=== PATIENT | male | born 1995 | race American Indian/Alaskan Native ===

== ENCOUNTER 2016-10-19 13:17 | Emergency (ER) | payer BC, OTHER ==
[2016-10-19 13:25] VITALS: BMI 27.2
[2016-10-19 13:28] VITALS: TEMP 98.6
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
--- NOTE | 2016-10-19 14:10 | CT ---
PROCEDURE: CT HEAD WITHOUT CONTRAST. HISTORY: head injury, pain COMPARISON: None available. TECHNIQUE: Axial computed tomography images were obtained through the head/brain without intravenous contrast. Radiation dose: Total exam DLP = 689 mGy-cm. This CT exam was performed using one or more of the following dose reduction techniques: Automated exposure control, adjustment of the mA and/or kV according to patient size, and/or use of iterative reconstruction technique. FINDINGS: HEMORRHAGE: No intracranial hemorrhage. BRAIN: No mass effect or edema. No suspicious cortical or medullary density is seen above or below the tentorium VENTRICLES: Unremarkable. No hydrocephalus. CALVARIUM: Unremarkable. No fracture identified including the skullbase. PARANASAL SINUSES: Multifocal bilateral ethmoid sinus disease is appreciated incidentally. MASTOID AIR CELLS: Unremarkable as visualized. No inflammatory changes. OTHER FINDINGS: None. IMPRESSION: Normal CT of the Head. Incidental bilateral ethmoid sinusitis.
--- NOTE | 2016-10-19 14:18 | CT ---
PROCEDURE: CT MAXILLOFACIAL BONES WITHOUT CONTRAST HISTORY: right facial pain s/p trauma COMPARISON: None TECHNIQUE: Contiguous axial CT images of the maxillofacial bones were obtained. Coronal and sagittal reformats were generated. Radiation dose: Total exam DLP = 738 mGy-cm. This CT exam was performed using one or more of the following dose reduction techniques: Automated exposure control, adjustment of the mA and/or kV according to patient size, and/or use of iterative reconstruction technique. FINDINGS: NASAL BONES: Unremarkable. ORBITS: Unremarkable. PARANASAL SINUSES/ MASTOIDS: Multifocal bilateral ethmoid sinusitis identified. . MAXILLA: Unremarkable. MANDIBLE/ TEMPOROMANDIBULAR JOINTS: There is an oblique fracture through the right horizontal mandibular ramus extending to include the angle posteriorly a proximal portion of the fracture includes the socket for the right impacted 3rd molar. Emphysematous changes are appreciated deep to the mucosa of the right cheek which may reflect mucosal laceration local to the fracture. Further clinical correlation is advised. The left mandible including the mental portion appears intact both temporomandibular joints appear unremarkable as imaged. SKULL BASE: Unremarkable. TEMPORAL BONES: Middle ears and mastoid grossly unremarkable. OTHER FINDINGS: None. IMPRESSION: An oblique, right-sided mandibular fractures appreciated. Potential related mucosal laceration at the medial right cheek soft tissues. No additional facial fracture identified. Multifocal ethmoid sinusitis incidentally noted.
[2016-10-19] MEDS ORDERED: Sodium Chloride 0.9% 1,000 ML IV STA (14:20)
[2016-10-19] MEDS ORDERED: Morphine 4 mg/ml ISec IVP STA (14:20)
[2016-10-19 14:29] LABS: BASO # 0.01 K/mm3 (0.0-2.0); BASO % 0.1 % (0.0-3.0); EOS # 0.2 (0.0-0.7); EOS % 1.3 % (1.5-5.0); GRAN # 10.52 (1.4-6.5); GRAN % 85.5 % (50.0-68.0); HEMOGLOBIN 14.2 gm/dL (14.0-18.0); LYMPH # 1.1 (1.2-3.4); LYMPH % 8.6 % (22.0-35.0); MEAN CELL VOLUME 91.7 fL (80.0-105.0); MEAN CORPUSCULAR HEMOGLOBIN 32.9 pg (25.0-35.0); MEAN CORPUSCULAR HGB CONC 35.9 g/dl (31.0-37.0); MEAN PLATELET VOLUME 9.9 fl (7.0-11.0); MONO # 0.6 (0.1-0.6); MONO % 4.5 % (1.0-6.0); PLATELET COUNT 182 10^3/uL (120.0-450.0); RBC 4.32 10^6/uL (3.5-6.1); RED CELL DISTRIBUTION WIDTH 13.1 % (11.5-14.5); WHITE BLOOD COUNT 12.3 10^3/ul (4.5-11.0)
[2016-10-19 14:39] LABS: ALB/GLOB RATIO 1.4 (1.1-1.8); ALBUMIN 4.4 g/dL (3.0-4.8); ALT/SGPT 39 U/L (7-56); AST/SGOT 39 U/L (15-59); BLOOD UREA NITROGEN 11 mg/dL (7-21); CALCIUM 9.1 mg/dL (8.4-10.5); GFR AFRICAN-AMERICAN > 60; GFR NON-AFRICAN AMERICAN > 60; INR 1.07 (0.93-1.08); PARTIAL THROMBOPLASTIN TIME 25.3 Seconds (23.7-30.8); PROTHROMBIN TIME 11.6 Seconds (9.9-11.8)
[2016-10-19 16:34] VITALS: BP 135/67; PULSE 80; RESP 16; O2SAT 100
== END 2016-10-19 16:34 | disposition designated cancer center or children's hospital (05) ==
LOC: ED 13:17
DX: S02.609A Fracture of mandible, unspecified, initial encounter for closed fracture (principal); Y04.0XXA Assault by unarmed brawl or fight, initial encounter
CPT/HCPCS: 70450; 70486; 80053; 85025; 85610; 85730; 86850; 86900; 96374; 96375; 99284; J2270; J2405; J7040

== ENCOUNTER 2016-10-27 13:30 | Emergency (ER) | payer BC ==
[2016-10-27 13:36] VITALS: BMI 28.7
[2016-10-27 13:41] VITALS: BP 120/70; PULSE 69; RESP 18; TEMP 97.5; O2SAT 97
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
== END 2016-10-27 14:55 | disposition home or self-care (01) ==
LOC: ED 13:30
DX: Z48.89 Encounter for other specified surgical aftercare (principal)

== ENCOUNTER 2017-03-14 10:43 | Emergency (ER) | payer BC ==
[2017-03-14 10:44] VITALS: BMI 28.7
[2017-03-14 11:01] VITALS: BP 144/89; PULSE 72; TEMP 99.2
[2017-03-14 11:05] VITALS: RESP 18; O2SAT 98
[2017-03-14] MEDS ORDERED: TDAP Vaccine 0.5 mL Syr IM ONE (11:16)
--- NOTE | 2017-03-14 11:20 | ED PDOC ---
Arrival/HPI - General Chief Complaint: Abnormal Skin Integrity Time Seen by Provider: 03/14/17 11:09 Historian: Patient - History of Present Illness Narrative History of Present Illness (Text): 03/14/17 11:14 A 21 year old male, with significant past medical history, presents to the emergency department complaining of laceration to left hand. Patient reports sustaining laceration from broomstick while at work. Patient denies any other complaints. Prefers glue rather than stitches. PMD: Dr. Sam Gardner Time/Duration: Prior to Arrival Past Medical History - Provider Review Nursing Documentation Reviewed: Yes - Infectious Disease Hx of Infectious Diseases: None - Tetanus Immunization Tetanus Immunization: Unknown - Past Medical History Past Medical History: No Previous - Cardiac Hx Cardiac Disorders: No - Pulmonary Hx Respiratory Disorders: Yes Hx Asthma: Yes - Neurological Hx Neurological Disorder: No - HEENT Hx HEENT Disorder: No - Renal Hx Renal Disorder: No - Endocrine/Metabolic Hx Endocrine Disorders: No - Hematological/Oncological Hx Blood Disorders: No - Integumentary Hx Dermatological Disorder: No - Musculoskeletal/Rheumatological Hx Musculoskeletal Disorders: No - Gastrointestinal Hx Gastrointestinal Disorders: No - Genitourinary/Gynecological Hx Genitourinary Disorders: No - Psychiatric Hx Psychophysiologic Disorder: No Hx Substance Use: Yes (weed) Other/Comment: mood swings - Past Surgical History Past Surgical History: No Previous - Surgical History Other/Comment: L thumb surgery, oral surgery - Anesthesia Hx Anesthesia: Yes Hx Anesthesia Reactions: No Hx Malignant Hyperthermia: No - Suicidal Assessment Feels Threatened In Home Enviroment: No Family/Social History - Physician Review Nursing Documentation Reviewed: Yes Family/Social History: No Known Family HX Smoking Status: Current Some Days Smoker Hx Alcohol Use: No Hx Substance Use: Yes (weed) Hx Substance Use Treatment: No Allergies/Home Meds Allergies/Adverse Reactions: Allergies shellfish derived Allergy (Verified 03/14/17 11:01) SWELLING Home Medications: Home Meds Medication Instructions Recorded Confirmed No Known Home Med 10/19/16 03/14/17 Review of Systems - Physician Review All systems were reviewed & negative as marked: Yes - Review of Systems Constitutional: absent: Other (no pain) Skin: Laceration (left hand) Physical Exam Vital Signs Reviewed: Yes Vital Signs Temp Pulse Resp BP Pulse Ox 03/14/17 11:04 99.2 F 72 18 144/89 98 12/13/17 10:56 99.2 F 72 16 144/89 99 Temperature: Afebrile Blood Pressure: Normal Respiratory Rate: Normal Appearance: Positive for: Well-Appearing Pain Distress: None Mental Status: Positive for: Alert and Oriented X 3 - Systems Exam Head: Present: Normocephalic Upper Extremity: Present: Other (laceration to left hand) Medical Decision Making ED Course and Treatment: 03/14/17 11:16 Impression: 21 year old male with left hand laceration. Plan: -- Boostrix Vaccine -- Reassess and disposition Progress Notes: - Medication Orders Current Medication Orders: Discontinued Medications Tetanus/Reduced Diphtheria/Acell Pertussis (Boostrix Vaccine Inj) 0.5 ml IM .ONCE ONE Stop: 03/14/17 11: Last Admin: 03/14/17 12:02 Dose: 0.5 ml Immunization Registry Document 03/14/17 12:02 HI (Rec: 03/14/17 12:03 CT [id number]) Immunization Registry Consent Date 03/14/17 - Scribe Statement The provider has reviewed the documentation as recorded by the Wolfe Gurmeet Mayorga Provider Scribe Attestation: All medical record entries made by the Scribe were at my direction and personally dictated by me. I have reviewed the chart and agree that the record accurately reflects my personal performance of the history, physical exam, medical decision making, and the department course for this patient. I have also personally directed, reviewed, and agree with the discharge instructions and disposition. Disposition/Present on Arrival - Present on Arrival Any Indicators Present on Arrival: No History of DVT/PE: No History of Uncontrolled Diabetes: No Urinary Catheter: No History of Decub. Ulcer: No History Surgical Site Infection Following: None - Disposition Have Diagnosis and Disposition been Completed?: Yes Diagnosis: Hand laceration Disposition: HOME/ ROUTINE Disposition Time: 11:00 Condition: STABLE Discharge Instructions (ExitCare): Laceration (ED), Skin Adhesive Care (ED) Additional Instructions: follow up with your doctor. return to emergency room with worsening symptoms or concerns. Referrals: [facility] [Outside] - Follow up with primary [facility] [Outside] - Follow up with primary Sam Gardner MD [Primary Care Provider] - Follow up with primary Magnus Marion DO [Staff Provider] - Follow up with primary Forms: [employer] (C[place]ican)
== END 2017-03-14 12:16 | disposition home or self-care (01) ==
LOC: ED 10:43
DX: S61.412A Laceration without foreign body of left hand, initial encounter (principal); W45.8XXA Other foreign body or object entering through skin, initial encounter; Y99.0 Civilian activity done for income or pay; Z23 Encounter for immunization

== ENCOUNTER 2017-04-20 09:50 | Emergency (ER) | payer BC, MEDICAID ==
[2017-04-20 10:10] VITALS: BMI 27.6
[2017-04-20 10:14] VITALS: TEMP 98.9
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
[2017-04-20 12:23] VITALS: BP 127/83; PULSE 66; RESP 16; O2SAT 99
== END 2017-04-20 12:22 | disposition home or self-care (01) ==
LOC: ED 09:50
DX: T85.618A Breakdown (mechanical) of other specified internal prosthetic devices, implants and grafts, initial encounter (principal)

== ENCOUNTER 2018-01-26 08:40 | Emergency (ER) | payer BC, MEDICAID ==
[2018-01-26 09:03] VITALS: TEMP 98.7; O2SAT 99; BMI 26.8
[2018-01-26] MEDS ORDERED: Naproxen 550 mg Tab PO STA (09:09)
--- NOTE | 2018-01-26 09:18 | ED PDOC ---
Arrival/HPI - General Chief Complaint: Upper Extremity Problem/Injury Time Seen by Provider: 01/26/18 09:06 Historian: Patient - History of Present Illness Narrative History of Present Illness (Text): 01/26/18 09:15 A 22 year old male, with no significant past medical history, presents to the emergency department complaining of left hand pain s/p injury. Patient reports he punched a glass with his left hand and began immediately experiencing pain. Patient states he realized he may have broken his 5th digit, as he is unable to move it. Patient denies any other complaints at this time. No PMD Past Medical History - Provider Review Nursing Documentation Reviewed: Yes - Infectious Disease Hx of Infectious Diseases: None - Tetanus Immunization Tetanus Immunization: Unknown - Past Medical History Past Medical History: No Previous - Cardiac Hx Cardiac Disorders: No - Pulmonary Hx Respiratory Disorders: Yes Hx Asthma: Yes - Neurological Hx Neurological Disorder: No - HEENT Hx HEENT Disorder: No - Renal Hx Renal Disorder: No - Endocrine/Metabolic Hx Endocrine Disorders: No - Hematological/Oncological Hx Blood Disorders: No - Integumentary Hx Dermatological Disorder: No - Musculoskeletal/Rheumatological Hx Musculoskeletal Disorders: No - Gastrointestinal Hx Gastrointestinal Disorders: No - Genitourinary/Gynecological Hx Genitourinary Disorders: No - Psychiatric Hx Psychophysiologic Disorder: No Hx Substance Use: Yes (weed) Other/Comment: mood swings - Past Surgical History Past Surgical History: No Previous - Surgical History Other/Comment: L thumb surgery, oral surgery - Anesthesia Hx Anesthesia: Yes Hx Anesthesia Reactions: No Hx Malignant Hyperthermia: No - Suicidal Assessment Feels Threatened In Home Enviroment: No Family/Social History - Physician Review Nursing Documentation Reviewed: Yes Family/Social History: No Known Family HX Smoking Status: Current Some Days Smoker Hx Alcohol Use: No Hx Substance Use: Yes (weed) Hx Substance Use Treatment: No Allergies/Home Meds Allergies/Adverse Reactions: Allergies shellfish derived Allergy (Verified 03/14/17 11:01) SWELLING Review of Systems - Review of Systems Musculoskeletal: Other (left hand pain, specifically 5th digit (pinky)). absent: Joint Swelling Physical Exam Vital Signs Reviewed: Yes Vital Signs Temp Pulse Resp BP Pulse Ox 01/26/18 09:02 98.7 F 64 18 135/91 H 99 Temperature: Afebrile Blood Pressure: Normal Pulse: Regular Respiratory Rate: Normal Appearance: Positive for: Well-Appearing, Non-Toxic, Comfortable Pain Distress: None Mental Status: Positive for: Alert and Oriented X 3 - Systems Exam Upper Extremity: Present: Tenderness (left hand) Neurological: Present: GCS=15, CN II-XII Intact, Speech Normal Skin: Present: Warm, Dry, Normal Color. No: Rashes Psychiatric: Present: Alert, Oriented x 3, Normal Insight, Normal Concentration Medical Decision Making ED Course and Treatment: 01/26/18 09:16 Impression: 22 year old male with left hand pain s/p injury. Physical exam shows left hand tenderness. Plan: -- Left Hand X-Ray -- Naproxen -- Reassess and disposition Progress Notes: 01/26/2018 10:21 Left Hand X-Ray IMPRESSION: Acute impacted nondisplaced fracture in the neck of the 5th metacarpl with mild dorsal angulation and overlying soft tissue swelling. Dictator: Heidi Bustamante MD 01/26/18 15:[address] wiley richard. advise outpt fu. - RAD Interpretation Radiology Orders: 01/26/18 09:09 HAND LEFT 3 VIEWS ROUTINE [RAD] Stat - Medication Orders Current Medication Orders: Discontinued Medications Naproxen (Anaprox Ds) 550 mg PO STAT STA Stop: 01/26/18 09:10 - Scribe Statement The provider has reviewed the documentation as recorded by the Geovanna Mayorga Provider Scribe Attestation: All medical record entries made by the Scribe were at my direction and personally dictated by me. I have reviewed the chart and agree that the record accurately reflects my personal performance of the history, physical exam, medical decision making, and the department course for this patient. I have also personally directed, reviewed, and agree with the discharge instructions and disposition. Disposition/Present on Arrival - Present on Arrival Any Indicators Present on Arrival: No History of DVT/PE: No History of Uncontrolled Diabetes: No Urinary Catheter: No History of Decub. Ulcer: No History Surgical Site Infection Following: None - Disposition Have Diagnosis and Disposition been Completed?: Yes Diagnosis: Metacarpal bone fracture Disposition: HOME/ ROUTINE Disposition Time: 11:00 Condition: STABLE Discharge Instructions (ExitCare): Hand Fracture (DC) Additional Instructions: follow up with ortho. return to er with worsening symptoms or concerns. Prescriptions: RX: Naproxen 500 mg PO BID PRN #14 tablet PRN Reason: Pain, Mild (1-3) RX: traMADol [Ultram] 50 mg PO TID PRN #10 tab PRN Reason: Pain, Severe (8-10) Referrals: Magnus Marion DO [Staff Provider] - Follow up with primary Forms: [employer] (Slovak)
--- NOTE | 2018-01-26 10:25 | RAD ---
PROCEDURE: Left Hand Radiographs. HISTORY: Trauma COMPARISON: None. FINDINGS: BONES: There is an acute impacted nondisplaced fracture in the neck of the 5th metacarpal with mild dorsal angulation. JOINTS: Normal. SOFT TISSUES: There is soft tissue swelling overlying the 5th metacarpal. OTHER FINDINGS: None. IMPRESSION: Acute impacted nondisplaced fracture in the neck of the 5th metacarpal with mild dorsal angulation and overlying soft tissue swelling.
--- NOTE | 2018-01-26 11:23 | RAD ---
PROCEDURE: Left Hand Radiographs. HISTORY: post reduction COMPARISON: None. FINDINGS: BONES: Cast obscures fine bony details. There is no acute displaced fracture or bone destruction. Bone alignment is normal. JOINTS: Normal. No osteoarthritic changes. SOFT TISSUES: Normal. OTHER FINDINGS: None. IMPRESSION: Status post close reduction, no acute fracture or dislocation. Near normal bone alignment.
[2018-01-26 11:30] VITALS: BP 130/87; PULSE 66; RESP 17
--- NOTE | 2018-01-26 21:43 | CON ---
DATE OF CONSULTATION: 01/26/2018 The patient suffered an injury to his left thumb and hand and injured it by fracturing the 5th metacarpal distal end of the neck and the proximal phalanx of the 5th digit, nonarticular. Both fractures did show good position, good rotation, and mild swelling. The deformity is not going to be life-altering, so we put him in an ulnar gutter cast with some fine manipulation to keep it in good position and to have acceptable results. I told him that he should cancel his surgery to have to have pins in and glass cuts and there is a chance of infection and still he would have a mild deformity. 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 So, we put him in an ulnar gutter splint, well padded and pankaj taping of the 4th and the 5th digit in the dorsiflexion of the wrist and flexion of the MCP joint and the PIP joint mild. We will see him in the office in 10 days. Post-reduction x-ray was done to make sure I did not make it worse and be able to go home. Told to elevate it, do not get it wet, and to come back in 10 days or reach to the office for reevaluation. Magnus Marion DO
== END 2018-01-26 11:30 | disposition home or self-care (01) ==
LOC: ED 08:40
DX: S62.367A Nondisplaced fracture of neck of fifth metacarpal bone, left hand, initial encounter for closed fracture (principal); W22.8XXA Striking against or struck by other objects, initial encounter; Y92.9 Unspecified place or not applicable

== ENCOUNTER 2018-02-23 22:38 | Emergency (ER) | payer BC ==
[2018-02-23 22:44] VITALS: BMI 31.5
[2018-02-23 23:37] LABS: BASO # 0.01 K/mm3 (0.0-2.0); BASO % 0.1 % (0.0-3.0); EOS # 0.1 (0.0-0.7); EOS % 1.7 % (1.5-5.0); GRAN # 4.95 (1.4-6.5); GRAN % 65.8 % (50.0-68.0); HEMOGLOBIN 14.2 g/dL (14.0-18.0); MEAN CELL VOLUME 93.2 fl (80.0-105.0); MEAN CORPUSCULAR HEMOGLOBIN 32.3 pg (25.0-35.0); MEAN CORPUSCULAR HGB CONC 34.6 g/dl (31.0-37.0); MEAN PLATELET VOLUME 10.6 fl (7.0-11.0); MONO # 0.5 (0.1-0.6); MONO % 6.4 % (1.0-6.0); RBC 4.4 10^6/uL (3.5-6.1); WHITE BLOOD COUNT 7.5 10^3/uL (4.5-11.0)
[2018-02-23 23:52] LABS: ALB/GLOB RATIO 1.3 (1.1-1.8); ALBUMIN 4.4 g/dL (3.0-4.8); ALT/SGPT 43 U/L (7-56); AST/SGOT 40 U/L (17-59); BLOOD UREA NITROGEN 10 mg/dL (7-21); CALCIUM 9.1 mg/dL (8.4-10.5); GFR NON-AFRICAN AMERICAN > 60
[2018-02-23 23:53] LABS: ACETAMINOPHEN < 10.0 ug/ml (10.0-20.0); SALICYLATE < 1 mg/dL (2.0-20.0)
--- NOTE | 2018-02-24 00:02 | ED PDOC ---
Arrival/HPI - General Chief Complaint: Psychiatric Evaluation Time Seen by Provider: 02/23/18 22:40 Historian: Patient - History of Present Illness Narrative History of Present Illness (Text): 02/23/18 22:45 Ap Walter is a 22 year old male who presents to the Emergency department brought in by EMS after he got in to a verbal argument with his parents this evening. Patient denies any psychiatric history, states he only has a medical history of asthma. Patient denies taking any medications regularly, suicidal ideation, homicidal ideation, or any other somatic complaints. Symptom Onset: Gradual Symptom Course: Unchanged Activities at Onset: Light Context: Home Past Medical History - Provider Review Nursing Documentation Reviewed: Yes - Infectious Disease Hx of Infectious Diseases: None - Tetanus Immunization Tetanus Immunization: Unknown - Past Medical History Past Medical History: No Previous - Cardiac Hx Cardiac Disorders: No - Pulmonary Hx Respiratory Disorders: Yes Hx Asthma: Yes - Neurological Hx Neurological Disorder: No - HEENT Hx HEENT Disorder: No - Renal Hx Renal Disorder: No - Endocrine/Metabolic Hx Endocrine Disorders: No - Hematological/Oncological Hx Blood Disorders: No - Integumentary Hx Dermatological Disorder: No - Musculoskeletal/Rheumatological Hx Musculoskeletal Disorders: No - Gastrointestinal Hx Gastrointestinal Disorders: No - Genitourinary/Gynecological Hx Genitourinary Disorders: No - Psychiatric Hx Psychophysiologic Disorder: No Hx Substance Use: Yes (weed) Other/Comment: mood swings - Past Surgical History Past Surgical History: No Previous - Surgical History Other/Comment: L thumb surgery, oral surgery - Anesthesia Hx Anesthesia: Yes Hx Anesthesia Reactions: No Hx Malignant Hyperthermia: No - Suicidal Assessment Feels Threatened In Home Enviroment: No Family/Social History - Physician Review Nursing Documentation Reviewed: Yes Family/Social History: Unknown Family HX Smoking Status: Current Some Days Smoker Hx Alcohol Use: No Hx Substance Use: Yes (weed) Hx Substance Use Treatment: No Allergies/Home Meds Allergies/Adverse Reactions: Allergies shellfish derived Allergy (Verified 02/23/18 22:44) SWELLING Home Medications: Home Meds Medication Instructions Recorded Confirmed RX: No Known Home Med 02/23/18 02/23/18 Review of Systems - Physician Review All systems were reviewed & negative as marked: Yes - Review of Systems Constitutional: Normal. absent: Fevers Eyes: Normal ENT: Normal Respiratory: Normal. absent: SOB, Cough Cardiovascular: Normal. absent: Chest Pain Gastrointestinal: Normal. absent: Abdominal Pain, Diarrhea, Nausea, Vomiting Genitourinary Male: Normal. absent: Dysuria, Frequency, Hematuria, Urinary Output Changes Musculoskeletal: Normal. absent: Back Pain, Neck Pain Skin: Normal. absent: Rash Neurological: Normal. absent: Headache, Dizziness Endocrine: Normal Hemo/Lymphatic: Normal Psychiatric: Normal Physical Exam Vital Signs Reviewed: Yes Temperature: Afebrile Blood Pressure: Normal Pulse: Regular Respiratory Rate: Normal Appearance: Positive for: Well-Appearing, Non-Toxic, Comfortable Pain Distress: None Mental Status: Positive for: Alert and Oriented X 3 - Systems Exam Head: Present: Atraumatic, Normocephalic Pupils: Present: PERRL Extroacular Muscles: Present: EOMI Conjunctiva: Present: Normal Mouth: Present: Moist Mucous Membranes Neck: Present: Normal Range of Motion Respiratory/Chest: Present: Clear to Auscultation, Good Air Exchange. No: Respiratory Distress, Accessory Muscle Use Cardiovascular: Present: Regular Rate and Rhythm, Normal S1, S2. No: Murmurs Abdomen: No: Tenderness, Distention, Peritoneal Signs Back: Present: Normal Inspection Upper Extremity: Present: Normal Inspection. No: Cyanosis, Edema Lower Extremity: Present: Normal Inspection. No: Edema Neurological: Present: GCS=15, CN II-XII Intact, Speech Normal Skin: Present: Warm, Dry, Normal Color. No: Rashes Psychiatric: Present: Alert, Oriented x 3, Normal Insight, Normal Concentration Medical Decision Making ED Course and Treatment: 02/23/18 22:45 Impression: 22 year old male brought in by EMS for psychiatric evaluation. Plan: -- EKG -- Chest X-ray -- Labs, alcohol level -- Urinalysis, urine drug screen -- Reassess and disposition Prior Visits: Notes and results from previous visits were reviewed. Progress Notes: Reviewed EKG, sinus bradycardia at [address]-segment elevations or depressions, no T-wave inversions, normal intervals. 02/24/18 00:35 Chest X-ray reviewed, shows no acute processes. 02/24/18 01:29 Pt medically cleared for PES evaluation. 02/24/18 05:35 Patient cleared by psychiatry for discharge. Patient to follow up with [facility]. - Lab Interpretations Lab Results: 02/23/18 23:23 02/23/18 23:23 Lab Results 02/23/18 23:23: Alcohol, Quantitative < 10 02/23/18 23:23: Salicylates < 1 L, Acetaminophen < 10.0 L 02/23/18 23:23: Sodium 140, Potassium 4.3, Chloride 108 H, Carbon Dioxide 24, Anion Gap 12, BUN 10, Creatinine 0.7 L, Est GFR ( Amer) > 60, Est GFR (Non-Af Amer) > 60, Random Glucose 99, Calcium 9.1, Total Bilirubin 0.3, AST 40, ALT 43, Alkaline Phosphatase 76, Total Protein 7.8, Albumin 4.4, Globulin 3.3, Albumin/Globulin Ratio 1.3 02/23/18 23:23: WBC 7.5, RBC 4.40, Hgb 14.2, Hct 41.0 L, MCV 93.2, MCH 32.3, MCHC 34.6, RDW 13.0, Plt Count 193, MPV 10.6, Gran % 65.8, Lymph % (Auto) 26.0, [place] % (Auto) 6.4 H, Eos % (Auto) 1.7, Baso % (Auto) 0.1, Gran # 4.95, Lymph # (Auto) 2.0, [place] # (Auto) 0.5, Eos # (Auto) 0.1, Baso # (Auto) 0.01 I have reviewed the lab results: Yes - RAD Interpretation Radiology Orders: 02/23/18 22:47 CHEST ONE VIEW [RAD] Stat Library Sales Consultant: ED Physician - EKG Interpretation Interpreted by ED Physician: Yes Type: 12 lead EKG - Scribe Statement The provider has reviewed the documentation as recorded by the Geovanna Wade Provider Scribe Attestation: All medical record entries made by the Geovanna were at my direction and personally dictated by me. I have reviewed the chart and agree that the record accurately reflects my personal performance of the history, physical exam, medical decision making, and the department course for this patient. I have also personally directed, reviewed, and agree with the discharge instructions and disposition. Disposition/Present on Arrival - Present on Arrival Any Indicators Present on Arrival: No History of DVT/PE: No History of Uncontrolled Diabetes: No Urinary Catheter: No History of Decub. Ulcer: No History Surgical Site Infection Following: None - Disposition Have Diagnosis and Disposition been Completed?: Yes Diagnosis: Polysubstance (excluding opioids) dependence Disposition: HOME/ ROUTINE Disposition Time: 01:10 Patient Problems: Current Active Problems Problem Status Onset Polysubstance (excluding opioids) dependence Acute Condition: GOOD Discharge Instructions (ExitCare): Drug Abuse and Drug Addiction (DC) Additional Instructions: AP WALTER, thank you for letting us take care of you today. The emergency medical care you received today was directed at your acute symptoms. If you were prescribed any medication, please fill it and take as directed. It may take several days for your symptoms to resolve. Return to the Emergency Department if your symptoms worsen, do not improve, or if you have any other problems. Please contact your doctor or call one of the physicians/clinics you have been referred to that are listed on the Patient Visit Information form that is included in your discharge packet. Bring any paperwork you were given at discharge with you along with any medications you are taking to your follow up visit. Our treatment cannot replace ongoing medical care by a primary care provider outside of the emergency department. Thank you for allowing the [facility] team to be part of your care today. Follow up with [facility] as instructed by our psychiatric department. Return to the emergency room if you have any concerns. Referrals: [facility] [Outside] - Follow up with primary [facility] [Outside] - Follow up with primary [facility] [Outside] - Follow up with primary Zulema Paredes MD [Medical Doctor] - Follow up with primary Forms: [employer] (Urdu)
[2018-02-24 00:15] VITALS: TEMP 98.3
[2018-02-24 00:59] LABS: URINE BILIRUBIN NEGATIVE (NEGATIVE); URINE BLOOD TRACE-INTACT (NEGATIVE); URINE GLUCOSE (UA) NEGATIVE (NEGATIVE); URINE LEUKOCYTE ESTERASE TRACE Leu/uL (NEGATIVE); URINE PROTEIN 100 mg/dL (<30 mg/dL)
[2018-02-24 01:03] LABS: URINE APPEARANCE SL CLOUDY (CLEAR); URINE COLOR YELLOW (YELLOW)
[2018-02-24 01:23] LABS: BARBITURATES, UR NEGATIVE (NEGATIVE); BENZODIAZEPINES, UR NEGATIVE (NEGATIVE); OPIATES, UR NEGATIVE (NEGATIVE); PHENCYCLIDINE, UR POSITIVE (NEGATIVE)
[2018-02-24 01:30] LABS: URINE BACTERIA MOD (NEG)
[2018-02-24 02:17] VITALS: RESP 16
[2018-02-24 06:28] VITALS: BP 112/68; PULSE 76; O2SAT 98
--- NOTE | 2018-02-24 08:01 | CARD ---
APPROVED REPORT Date of service: 02/23/2018 EKG Measurement Heart [id number] <Conclusion> Sinus bradycardia LVH by suellene, could be normal variant
--- NOTE | 2018-02-24 11:17 | RAD ---
HISTORY: psych eval COMPARISON: No prior. TECHNIQUE: Chest, one view. FINDINGS: LUNGS: No focal consolidation. Please note that chest x-ray has limited sensitivity for the detection of pulmonary masses. PLEURA: No significant pleural effusion identified. No definite pneumothorax . CARDIOVASCULAR: Heart size appears within normal limits. No significant atherosclerotic calcification present. OSSEOUS STRUCTURES: No acute osseous abnormality identified. VISUALIZED UPPER ABDOMEN: Unremarkable. OTHER FINDINGS: None. IMPRESSION: No focal consolidation, significant pleural effusion, or definite pneumothorax identified.
== END 2018-02-24 06:27 | disposition home or self-care (01) ==
LOC: ED 22:38
DX: F19.20 Other psychoactive substance dependence, uncomplicated (principal); J45.909 Unspecified asthma, uncomplicated; F17.210 Nicotine dependence, cigarettes, uncomplicated
CPT/HCPCS: 71045; 80053; 81001; 85025; 87086; 90791; 93005; 99284; G0480

== ENCOUNTER 2018-04-19 02:23 | Emergency (ER) | payer BC ==
[2018-04-19 02:24] VITALS: BMI 31.5
[2018-04-19 02:47] VITALS: O2SAT 100
--- NOTE | 2018-04-19 02:53 | ED PDOC ---
Arrival/HPI - General Chief Complaint: Finger,Hand,&Wrist Time Seen by Provider: 04/19/18 02:24 Historian: Patient - History of Present Illness Narrative History of Present Illness (Text): 04/19/18 02:49 Ap Escobar is a 22 year old male who presents to the Emergency department complaining of abrasions to bilateral hands. Patient states he got in to an argument with his mother and sustained abrasions to bilateral hands. Patient denies any suicidal ideation, homicidal ideation, hallucinations, weakness/numbness in extremities, other trauma/injury, or any other complaints. Symptom Onset: Gradual Symptom Course: Unchanged Activities at Onset: Emotional Upset Context: Home Past Medical History - Provider Review Nursing Documentation Reviewed: Yes - Infectious Disease Hx of Infectious Diseases: None - Tetanus Immunization Tetanus Immunization: Unknown - Past Medical History Past Medical History: No Previous - Cardiac Hx Cardiac Disorders: No - Pulmonary Hx Respiratory Disorders: Yes Hx Asthma: Yes - Neurological Hx Neurological Disorder: No - HEENT Hx HEENT Disorder: No - Renal Hx Renal Disorder: No - Endocrine/Metabolic Hx Endocrine Disorders: No - Hematological/Oncological Hx Blood Disorders: No - Integumentary Hx Dermatological Disorder: No - Musculoskeletal/Rheumatological Hx Musculoskeletal Disorders: No - Gastrointestinal Hx Gastrointestinal Disorders: No - Genitourinary/Gynecological Hx Genitourinary Disorders: No - Psychiatric Hx Psychophysiologic Disorder: No Hx Substance Use: Yes (weed) Other/Comment: mood swings - Past Surgical History Past Surgical History: No Previous - Surgical History Other/Comment: L thumb surgery, oral surgery - Anesthesia Hx Anesthesia: Yes Hx Anesthesia Reactions: No Hx Malignant Hyperthermia: No - Suicidal Assessment Feels Threatened In Home Enviroment: No Family/Social History - Physician Review Nursing Documentation Reviewed: Yes Family/Social History: Unknown Family HX Smoking Status: Current Some Days Smoker Hx Alcohol Use: No Hx Substance Use: Yes (weed) Hx Substance Use Treatment: No Allergies/Home Meds Allergies/Adverse Reactions: Allergies shellfish derived Allergy (Verified 04/19/18 02:44) SWELLING Home Medications: Home Meds Medication Instructions Recorded Confirmed No Known Home Med 02/23/18 04/19/18 Review of Systems - Physician Review All systems were reviewed & negative as marked: Yes - Review of Systems Constitutional: Normal. absent: Fevers Eyes: Normal ENT: Normal Respiratory: Normal. absent: SOB, Cough Cardiovascular: Normal. absent: Chest Pain Gastrointestinal: Normal. absent: Abdominal Pain, Diarrhea, Nausea, Vomiting Genitourinary Male: Normal. absent: Dysuria, Frequency, Hematuria, Urinary Output Changes Musculoskeletal: Normal. absent: Back Pain, Neck Pain Skin: Other (+abrasions to bilateral hands) Neurological: Normal. absent: Headache, Dizziness Endocrine: Normal Hemo/Lymphatic: Normal Psychiatric: Normal Physical Exam Vital Signs Reviewed: Yes Vital Signs Temp Pulse Resp BP Pulse Ox 04/19/18 02:46 98.6 F 70 18 133/85 100 Temperature: Afebrile Blood Pressure: Normal Pulse: Regular Respiratory Rate: Normal Appearance: Positive for: Well-Appearing, Non-Toxic, Comfortable Pain Distress: None Mental Status: Positive for: Alert and Oriented X 3 - Systems Exam Head: Present: Atraumatic, Normocephalic Pupils: Present: PERRL Extroacular Muscles: Present: EOMI Conjunctiva: Present: Normal Mouth: Present: Moist Mucous Membranes Neck: Present: Normal Range of Motion Upper Extremity: Present: Normal ROM, NORMAL PULSES, Neurovascularly Intact, Capillary Refill < 2s, Other (Abrasions to 4th and 5th MCP joints on bilateral hands). No: Cyanosis, Edema, Tenderness, Swelling, Erythema, Temperature Abnormalties, Deformity Lower Extremity: Present: Normal Inspection. No: Edema Neurological: Present: GCS=15, CN II-XII Intact, Speech Normal, Motor Func Grossly Intact, Normal Sensory Function Skin: Present: Warm, Dry, Normal Color. No: Rashes Psychiatric: Present: Alert, Oriented x 3, Normal Insight, Normal Concentration Medical Decision Making ED Course and Treatment: 04/19/18 02:49 Impression: 22 year old male complaining of abrasions to bilateral hands tonight. Plan: -- XR Left Hand -- XR Right Hand -- Reassess and disposition Prior Visits: Notes and results from previous visits were reviewed. Progress Notes: 04/19/18 03:10 Reviewed radiology, XR Left Kenneth shows fracture of the 5th metacarpal. XR Right Hand negative for acute processes. 04/19/18 03:28 On re-evaluation, patient feels better and is in no acute distress. I have discussed the results and plan with the patient, who expresses understanding. Pt placed in an ulnar gutter splint. Patient is stable for discharge. Patient was instructed to follow up with Dr. Duggan, orthopedics, or return if symptoms worsen or new concerning symptoms arise. - RAD Interpretation Environmental Health Technician: Radiologist - Scribe Statement The provider has reviewed the documentation as recorded by the Geovanna Wade Provider Scribe Attestation: All medical record entries made by the Scribe were at my direction and personally dictated by me. I have reviewed the chart and agree that the record accurately reflects my personal performance of the history, physical exam, medical decision making, and the department course for this patient. I have also personally directed, reviewed, and agree with the discharge instructions and disposition. Disposition/Present on Arrival - Present on Arrival Any Indicators Present on Arrival: No History of DVT/PE: No History of Uncontrolled Diabetes: No Urinary Catheter: No History of Decub. Ulcer: No History Surgical Site Infection Following: None - Disposition Have Diagnosis and Disposition been Completed?: Yes Diagnosis: Boxers fracture Disposition: HOME/ ROUTINE Disposition Time: 03:10 Condition: GOOD Discharge Instructions (ExitCare): Cast Care, Boxer's Fracture (DC) Additional Instructions: AP SUAZO, thank you for letting us take care of you today. Your provider was Dakota Carrillo DO and you were treated for a hand injury. The emergency medical care you received today was directed at your acute symptoms. If you were prescribed any medication, please fill it and take as directed. It may take several days for your symptoms to resolve. Return to the Emergency Department if your symptoms worsen, do not improve, or if you have any other problems. Please contact your doctor or call one of the physicians/clinics you have been referred to that are listed on the Patient Visit Information form that is included in your discharge packet. Bring any paperwork you were given at discharge with you along with any medications you are taking to your follow up visit. Our treatment cannot replace ongoing medical care by a primary care provider outside of the emergency department. Thank you for allowing the [facility] team to be part of your care today. Keep the splint on until you are seen by the orthopedic doctor. Keep the splint clean and dry at all times. Follow up with the orthopedic doctor in 2-3 days for re-evaluation and further management. Referrals: [facility] [Outside] - Follow up with primary Jignesh Duggan III, MD [Medical Doctor] - Follow up with primary Forms: [employer] ([place] Korean)
[2018-04-19 03:50] VITALS: BP 128/75; PULSE 82; RESP 17; TEMP 98.2
--- NOTE | 2018-04-19 08:29 | RAD ---
PROCEDURE: Bilateral hand radiographs. HISTORY: r/o fx COMPARISON: None available. FINDINGS: BONES: Right Hand: No acute displaced fracture. Left Hand: Displaced comminuted fracture deformity of the distal 5th metacarpal. JOINTS: Right Hand: No dislocation. Left Hand: No dislocation. SOFT TISSUES: Right Hand: Unremarkable. No evidence of radiopaque foreign body. Left Hand: Soft tissue swelling. No evidence of radiopaque foreign body. OTHER FINDINGS: None. IMPRESSION: Comminuted displaced fracture deformity of the distal left 5th metacarpal with associated soft tissue swelling.
== END 2018-04-19 03:50 | disposition home or self-care (01) ==
LOC: ED 02:23
DX: S62.307A Unspecified fracture of fifth metacarpal bone, left hand, initial encounter for closed fracture (principal); W22.01XA Walked into wall, initial encounter